=== PATIENT | female | born 1995 | race Two or more races ===

== ENCOUNTER 2018-08-29 00:01 | Emergency (ER) | payer SELFPAY ==
[~2018-08-29] VITALS: Ht 162.6 cm; Wt 77.1 kg
[2018-08-29 00:02] VITALS: BP 129/62
[2018-08-29] MEDS ORDERED: diphenhydrAMINE HCL 25 MG CAPSULE PO ONE (01:30)
[2018-08-29] MEDS ORDERED: FAMOTIDINE 20 MG TABLET. PO ONE (01:30)
[2018-08-29] MEDS ORDERED: predniSONE 20 MG TABLET PO ONE (01:30)
[2018-08-29] MEDS ORDERED: DIPH25CA58 PO (02:38)
[2018-08-29] MEDS ORDERED: FAMO-63 PO (02:38)
[2018-08-29] MEDS ORDERED: PRED50TA PO (02:38)
--- NOTE | 2018-08-29 06:25 | PHYS DOC ---
Past Medical History Past Medical History: No Pertinent History Past Surgical History: No Surgical History Alcohol Use: None Drug Use: None Adult General Chief Complaint Chief Complaint: SKIN PROBLEM HPI HPI Patient is a 23 year old female who is 2 months presents with urticaria starting yesterday after eating banana. Patient reports rash and itching. Reported tingling of hard palate lips. No shortness of breath, wheezing, chest tightness. Denies prior allergies. No new medication or household products exposure to area no medications or therapy sticking prior to ED arrival.[] Review of Systems Review of Systems Review symptoms as per history of present illness. All other review symptoms are negative. All other systems were reviewed and found to be within normal limits, except as documented in this note. Current Medications Current Medications Current Medications Medications (Trade) Dose Ordered Sig/Mario Start Time Stop Time Status Last Admin Dose Admin Diphenhydramine HCl (Benadryl) 50 mg 1X ONCE 08/29/18 01:30 08/29/18 01:31 DC 08/29/18 01:07 50 MG Famotidine (Pepcid) 20 mg 1X ONCE 08/29/18 01:30 08/29/18 01:31 DC 08/29/18 01:07 20 MG Prednisone (Prednisone) 60 mg 1X ONCE 08/29/18 01:30 08/29/18 01:31 DC 08/29/18 01:07 60 MG Allergies Allergies Allergies Coded Allergies Type Severity Reaction Last Updated Verified No Known Drug Allergies 08/29/18 No Physical Exam Physical Exam Constitutional: Well developed, well nourished, no acute distress, non-toxic appearance. [] HENT: Normocephalic, atraumatic, bilateral external ears normal, oropharynx moist no oral pharyngeal swelling. [] Eyes: PERRLA, EOMI, conjunctiva normal, no discharge. [] Neck: Normal range of motion, no tenderness, supple, no stridor. [] Cardiovascular:Heart rate regular rhythm, no murmur [] Lungs & Thorax: Bilateral breath sounds clear to auscultation [] Abdomen: Bowel sounds normal, soft, no tenderness. [] Skin: Mild diffuse urticaria, torso, extremities and neck[] Back: No tenderness, no CVA tenderness. [] Extremities: No tenderness, no cyanosis, no clubbing, ROM intact, no edema. [] Neurologic: Alert and oriented X 3, normal motor function, normal sensory function, no focal deficits noted. [] Current Patient Data Vital Signs Vital Signs Date Time Temp Pulse Resp B/P (MAP) Pulse Ox O2 Delivery O2 Flow Rate FiO2 08/29/18 00:02 98.3 80 20 129/62 (84) 97 Room Air 98.3 EKG EKG [] Radiology/Procedures Radiology/Procedures [] Course & Med Decision Making Course & Med Decision Making Pertinent Labs and Imaging studies reviewed. (See chart for details) [Symptoms fully resolved with treatment. With care with PCP follow-up. Return precautions reviewed.] Dragon Disclaimer Dragon Disclaimer This electronic medical record was generated, in whole or in part, using a voice recognition dictation system. Departure Departure Impression: Primary Impression: Allergic reaction Disposition: HOME, SELF-CARE Condition: STABLE Patient Instructions: Allergies, Generic Additional Instructions: Please take newly prescribed medications as directed. Follow up with your PCP in 2-3 days for re-evaluation. Return to the ED if new or worsening symptoms. Scripts Diphenhydramine Hcl (BENADRYL) 25 Mg Capsule 25 MG PO Q6HRS for 7 Days, #28 CAP Prov: LISSY BATES DO 08/29/18 Prednisone (PREDNISONE) 50 Mg Tablet 1 TAB PO DAILY, #5 TAB Prov: LISSY BATES DO 08/29/18 Famotidine (PEPCID) 20 Mg Tablet 20 MG PO BID, #10 TAB Prov: LISSY BATES DO 08/29/18 LISSY BATES DO Aug 29, 2018 06:25
== END 2018-08-29 02:41 | disposition home or self-care (01) ==
LOC: ER 00:01
DX: O99.711 Diseases of the skin and subcutaneous tissue complicating pregnancy, first trimester (principal); L50.9 Urticaria, unspecified; Z3A.08 8 weeks gestation of pregnancy
CPT/HCPCS: 99284; J7512; Q0163